=== PATIENT | male | born 1975 | race Caucasian/White ===

== ENCOUNTER 2018-05-06 12:52 | Emergency (ER) | payer MEDICAID ==
[~2018-05-06] VITALS: Ht 180.3 cm; Wt 167.2 kg
[2018-05-06 12:58] VITALS: BP 187/109
[2018-05-06] MEDS ORDERED: furosemide 20MG tablet PO ONE (13:20)
[2018-05-06] MEDS ORDERED: HYDR50TA3 PO (13:20)
[2018-05-06] MEDS ORDERED: LISI-600 PO (13:20)
[2018-05-06] MEDS ORDERED: CEPH500C5 PO (13:31)
== END 2018-05-06 13:38 | disposition home or self-care (01) ==
LOC: ER 12:52
DX: L02.415 Cutaneous abscess of right lower limb (principal); R60.0 Localized edema; Z88.0 Allergy status to penicillin; Z79.899 Other long term (current) drug therapy
CPT/HCPCS: 99283